=== PATIENT | male | born 1995 | race Caucasian/White ===

== ENCOUNTER 2020-02-23 15:10 | Emergency (ER) | payer OTHER ==
[~2020-02-23] VITALS: Ht 175.3 cm; Wt 77.1 kg
[2020-02-23] MEDS ORDERED: AMOXICILLI400 MG/5 M PO (18:28)
== END 2020-02-23 18:50 | disposition home or self-care (01) ==
LOC: ED 15:10
DX: K04.7 Periapical abscess without sinus (principal); K02.9 Dental caries, unspecified; F17.200 Nicotine dependence, unspecified, uncomplicated; Z91.030 Bee allergy status
CPT/HCPCS: 99282

== ENCOUNTER 2024-12-07 23:25 | Emergency (ER) | payer OTHER ==
[~2024-12-07] VITALS: Ht 175.3 cm; Wt 74.8 kg
[~2024-12-07 23:25] MED LIST: AMOXICILLI400 MG/5 M PO
[2024-12-07 23:59] LABS: BASOPHILS 0.9 % (0.2-1.2); EOSINOPHILS 1.4 % (0.8-7.0); HEMATOCRIT 44.7 % (40.1-51.0); HEMOGLOBIN 15.4 g/dL (13.7-17.5); LYMPHOCYTES 27.2 % (21.8-53.1); MCH 30.3 PG (25.7-32.2); MCHC 34.5 g/dL (32.3-36.5); MONOCYTES 10.4 % (5.3-12.2); NEUTROPHILS 59.7 % (34.0-67.9); PLATELET COUNT 195 K/uL (163-337); RBC 5.08 M/uL (4.63-6.08)
[2024-12-08 00:25] LABS: ALBUMIN 3.8 g/dL (3.4-5.0); ALBUMIN/GLOBULIN RATIO 1.23 (1.1-2.4); ANION GAP 11.6 (7-21); BILIRUBIN, TOTAL 0.5 mg/dL (0.2-1.0); BUN/CREATININE RATIO 10.18 (6.0-28.6); CALCIUM 8.9 mg/dL (8.5-10.1); CREATININE, SERUM 1.08 mg/dL (0.70-1.30); POTASSIUM 3.6 mmol/L (3.5-5.1); PROTEIN, TOTAL 6.9 g/dL (6.4-8.2)
[2024-12-08] MEDS ORDERED: PRILOSEC OTC20 MG PO (00:58)
[2024-12-08] MEDS ORDERED: PANTOPRAZOLE SODIUM 40 MG TABEC PO ONE (01:00)
[2024-12-08 01:13] VITALS: BP 112/69
== END 2024-12-08 01:13 | disposition home or self-care (01) ==
LOC: ED 23:25
PROVIDERS: Internal Medicine
DX: K62.5 Hemorrhage of anus and rectum (principal); K21.9 Gastro-esophageal reflux disease without esophagitis; F17.200 Nicotine dependence, unspecified, uncomplicated; Z91.030 Bee allergy status
CPT/HCPCS: 36415; 80053; 85025; 99284; A9270

== ENCOUNTER 2024-12-20 09:45 | Day surgery (SDC) | payer OTHER ==
[~2024-12-20] VITALS: Ht 175.3 cm; Wt 75.0 kg
[~2024-12-20 09:45] MED LIST changes: +DOXYCYCLINE HY100 MG PO; +IBLOOD GLUCOSE TEST STRIP 1 EA TEST VI PRN; +LACTATED RINGER'S 1,000 ML IV SCH; +LIDOCAINE HCL 1% 5 ML SDV INJ ONE; +PRILOSEC OTC20 MG PO
[2024-12-20 10:06] VITALS: BP 117/72
[2024-12-20 13:08] VITALS: BP 93/70
--- NOTE | 2024-12-20 13:22 | NUR ---
12/20/24 1322 Janeth Mcadams 1107- PT PRESENTS TO PACU, LEFT LATERAL POSITION. LR INFUSING TO RFA IV, BREATHING EVEN AND NON LABORED ON ROOM AIR. PT REACTIVE AND TALKING BUT UNABLE TO UNDERSTAND. ABD SOFT, NON DISTENDED. ALL MONITORS IN PLACE. 1110- PT BP REMAINS IN THE LOW 80'S AFTER RECYCLING AND CUFF REPOSITION, HEAD OF BED FLAT, LR HANGING WIDE OPEN. 1115- CONTINUE TO MONITOR. PT RESTING INTERMITTENTLY. DENIES DIZZINESS FROM BP. 1135- HEAD OF BED ELEVATED. PT TOLERATING WELL, DENIES DIZZINESS. 2ND LITER LR STARTED AT THIS TIME. 1150- WATER PROVIDED TO PT, TOLERATING WELL, REPORTS BEING HUNGRY. PUDDING PROVIDED. 1200- BP INCREASED TO 93 SYSTOLICALLY WITH 3 BLOOD PRESSURES MAINTAINING IN THE 90'S. JOSE MCLEOD OK WITH DISCHARGE. PT REMAINS ASYMPTOMATIC. UP TO SIDE OF BED, TOLERATING WELL, PT TO GET DRESSED. FRIEND CALLED FOR RIDE HOME. 1208- PT TRANSFERRED TO WHEELCHAIR WITH STEADY GAIT. SALINE LOCK REMOVED, TIP INTACT, DRESSING APPLIED. VERBALIZED UNDERSTANDING OF INSTRUCTIONS. TAKEN OUT TO CAR WITH ALL BELONGINGS, NO SIGNS OF DISTRESS.
--- NOTE | 2024-12-26 15:15 | OR ---
[facility] [address] [facility] [place], [place] [address] Signed DATE OF OPERATION: 12/20/2024 SURGEON: Jenniffer Gupta DO PREOPERATIVE DIAGNOSES: 1. Gastroesophageal reflux symptoms and rectal bleeding. 2. Screening for colon cancer. POSTOPERATIVE DIAGNOSES: 1. Gastroesophageal reflux symptoms and rectal bleeding. 2. Screening for colon cancer. 3. LA grade esophagitis and punctate gastritis. 4. Broad-based 4 cm rectosigmoid mass at 10 cm. PROCEDURES PERFORMED: 1. Esophagogastroduodenoscopy with biopsy. 2. Colonoscopy with multiple biopsies of large rectum and rectosigmoid mass at 10 cm and mucosal tattooing. ANESTHESIA: IV sedation. ESTIMATED BLOOD LOSS: Minimal. DRAINS: None. COMPLICATION: None. DESCRIPTION OF PROCEDURE: The patient brought to the operating room, placed in supine position. After induction of IV sedation through preanesthetized oropharynx and a bite block, an Olympus video endoscope was introduced through the mouth, directed through the length of the esophagus, upper middle and lower esophagus under direct visualization. Some LA grade A esophagitis was noted. Biopsies were taken in random fashion at the GE junction. Scope was then passed into the stomach and the stomach insufflated and general aspiration was carried out. No intrinsic or extrinsic masses appreciated. Some minimal gastritis and punctate gastritis noted distally in the antrum. The scope was then brought through the Electronically Signed By: JENNIFFER GUPTA DO 12/26/24 1515 PATIENT NAME: KATERIN HENRY OPERATIVE REPORT DATE OF : [birth year] REPORT #: [id number] PHYSICIAN: JENNIFFER GUPTA DO PCP: NAZIA EUGENE MD REPORT IS CONFIDENTIAL AND NOT TO BE RELEASED WITHOUT AUTHORIZATION [facility] [address] [place], [place] [address] Signed pylorus and first and second portion of duodenum were essentially unremarkable without lesions, ulcerations or masses noted. Scope was brought back into the stomach, retroflexed on itself. No evidence of hiatal hernias appreciated. Scope was placed in neutral position. Stomach was decompressed and the scope was withdrawn. The patient was then placed in the left lateral position and padded to the satisfaction of anesthesia. Utilizing an Olympus video colonoscope from the rectum while insufflating and advancing the scope cautiously the scope was advanced through the rectum, rectosigmoid, sigmoid colon, descending colon, and passed the splenic flexure into the transverse colon, past hepatic flexure into the ascending colon and cecum. The stomach was then fully insufflated and inspection of the mucosal surfaces was noted. The cecum and ascending colon without lesions, ulceration. No intrinsic or extrinsic masses were appreciated. Scope was brought back from hepatic flexure to the transverse colon. No intrinsic or extrinsic masses were noted. No lesions or ulcerations were noted. Scope was brought back to the splenic flexure into the descending colon. No lesions, ulceration, masses appreciated. Scope was brought again in sigmoid colon. No intrinsic or extrinsic masses, lesions, or ulceration was noted. Scope was then brought to the rectosigmoid large approximately 3 cm broad-based mass effect was noted. It was multilobular and approximately 1/3rd of the circumference of the rectosigmoid colon at 10 cm. Multiple biopsies were taken throughout the lesion. broad-based to use a snare for excision with multiple biopsies taken at the base and the apex along the entire region of the mass itself. No excessive bleeding was noted. Satisfactory hemostasis was appreciated. The specimens were all passed off the field for pathologic review. The colon was decompressed. The scope was withdrawn. The patient tolerated the procedure well and went to recovery room in satisfactory condition. Jenniffer Gupta DO RS/MODL /[id number] Copies: ~ Electronically Signed By: JENNIFFER GUPTA DO 12/26/24 1515 PATIENT NAME: KATERIN HENRY OPERATIVE REPORT DATE OF : [birth year] REPORT #: [id number] PHYSICIAN: JENNIFFER GUPTA DO PCP: NAZIA EUGENE MD REPORT IS CONFIDENTIAL AND NOT TO BE RELEASED WITHOUT AUTHORIZATION
--- NOTE | 2024-12-28 09:49 | PATH ---
[facility] [address] [place], [place] [address] Signed SPECIMEN(S): A GE JUNCTION SPECIMEN(S): B RECTOSIGMOID BIOPSY AT 10 CM SPECIMEN SOURCE: A. GE JUNCTION B. RECTOSIGMOID BIOPSY AT 10 CM CLINICAL HISTORY: Screening, heme positive stool, emesis. Punctate esophagitis, grade a esophagitis, rectal sigmoid mass at 10 cm. A/B) biopsy FINAL PATHOLOGIC DIAGNOSIS: A. GE junction: - No tissue identified - Nondiagnostic specimen B. Rectosigmoid biopsy at 10 cm: - Fragments of colonic mucosa with active acute and chronic colitis and associated granulation tissue - Negative for malignant neoplasm, dysplasia or granulomata - See comment COMMENT: A cytokeratin AE1/AE3 stain was performed with appropriate controls and is negative for an infiltrating carcinoma pattern. The differential diagnosis for the findings in specimen B would include inflammatory bowel disease, infectious colitis, or reactive tissue adjacent to a malignant process. The clinical history states that this represents an a mass lesion however features to explain a mass lesion are not identified and therefore clinical and endoscopic correlation are required. Should a clinically suspicious lesion persist or recur, additional biopsy material would be suggested as clinically warranted. BB MICROSCOPIC EXAMINATION: Histologic sections of all submitted blocks are examined by light microscopy. These findings, together with the gross examination, support the pathologic diagnosis. Histologic sections of all submitted blocks are examined by light microscopy. These findings, together with the gross examination, support the pathologic PATIENT NAME: KATERIN HENRY PATHOLOGY DATE OF : [birth year] REPORT #: [id number] PHYSICIAN: HERMINIO HARDY PCP: NAZIA EUGENE MD REPORT IS CONFIDENTIAL AND NOT TO BE RELEASED WITHOUT AUTHORIZATION [facility] [address] [place], [place] [address] Signed diagnosis. GROSS DESCRIPTION: A. The specimen, labeled and designated "Deniz, GE junction," is received in formalin and consists of 0 specimens within container. The specimen is tossed. Verified by PA. B. The specimen, labeled and designated "Deniz, rectosigmoid biopsy at 10 cm," is received in formalin and consists of seven smith soft tissue fragments, ranging from 0.2-0.7 cm. Entirely submitted in (B1). AB (under the direct supervision of a pathologist) The Gross Description was prepared using a voice recognition system. The report was reviewed for accuracy; however, sound-alike word errors, addition and/or deletions may occur. If there is any question about this report, please contact Client Services. ADDITIONAL NOTES: Immunohistochemical and/or in situ hybridization studies if performed in this case included appropriate positive controls that reacted as expected. This test was developed and its performance characteristics determined by [facility]. It has not been cleared or approved by the U.S. Food and Drug Administration. The FDA has determined that such clearance or approval is not necessary. This test is used for clinical purposes. It should not be regarded as investigational or for research. [facility] is certified under the Clinical Laboratory Improvement Amendments of 1988 (CLIA) as qualified to perform high complexity clinical laboratory testing. PERFORMING LABORATORY: Technical component was performed by [facility], [address] [place] [id number] (CLIA# [id number]). Professional interpretation was performed by [facility] - [address] [place] [id number] (CLIA#: [id number]). Diagnostician: Mak Adair MD Pathologist Electronically Signed 12/28/2024 Copies: PATIENT NAME: KATERIN HENRY ANISHA PATHOLOGY DATE OF : [birth year] REPORT #: [id number] PHYSICIAN: HERMINIO PATHOLOGY PCP: NAZIA EUGENE MD REPORT IS CONFIDENTIAL AND NOT TO BE RELEASED WITHOUT AUTHORIZATION [address] [address] Signed ~ PATIENT NAME: KATERIN HENRY ANISHA PATHOLOGY DATE OF : [birth year] REPORT #: [id number] PHYSICIAN: HERMINIO PATHOLOGY PCP: NAZIA EUGENE MD REPORT IS CONFIDENTIAL AND NOT TO BE RELEASED WITHOUT AUTHORIZATION
== END 2024-12-20 12:08 | disposition home or self-care (01) ==
LOC: OPS 09:45 → DS 09:45 → OPS 11:45 → DS 12:15
PROVIDERS: ATTEND Surgery
PROC: 0DB48ZX Excision of Esophagogastric Junction, Via Natural or Artificial Opening Endoscopic, Diagnostic (ICD-10-PCS; principal; 2024-12-20 11:45)
PROC: 0DBN8ZX Excision of Sigmoid Colon, Via Natural or Artificial Opening Endoscopic, Diagnostic (ICD-10-PCS; 2024-12-20 11:45)
DX: K21.01 Gastro-esophageal reflux disease with esophagitis, with bleeding (principal); K29.71 Gastritis, unspecified, with bleeding; K63.89 Other specified diseases of intestine; K52.9 Noninfective gastroenteritis and colitis, unspecified; K59.00 Constipation, unspecified; F17.210 Nicotine dependence, cigarettes, uncomplicated; Z79.899 Other long term (current) drug therapy
CPT/HCPCS: 00813; 88305; 88342; J2704; J7121